=== PATIENT | male | born 1975 | race Caucasian/White ===

== ENCOUNTER 2016-07-18 17:52 | Emergency (ER) | payer MEDICAID, OTHER ==
[~2016-07-18] VITALS: Ht 198.1 cm; Wt 85.0 kg
[~2016-07-18 17:52] MED LIST: AMOX500T PO; ERYT250C8 PO; HYDR1TAB12 PO; OMEP-110 PO
[2016-07-18 18:02] VITALS: BP 143/79
[2016-07-18] MEDS ORDERED: SODIUM CHLORIDE FLUSH 10ML SYR IVF ONE (18:30)
[2016-07-18 18:51] LABS: BLOOD UREA NITROGEN 12 mg/dL (7-18)
[2016-07-18] MEDS ORDERED: METH40TA3 PO (18:53)
[2016-07-18] MEDS ORDERED: QUET300T5 PO (18:53)
[2016-07-18 18:55] LABS: ASPARTATE AMINO TRANSFERASE 31 U/L (15-37)
== END 2016-07-18 19:30 | disposition home or self-care (01) ==
LOC: ED 19:21
DX: K29.50 Unspecified chronic gastritis without bleeding (principal)
CPT/HCPCS: 36415; 80053; 85025; 99284

== ENCOUNTER → 2018-05-15 | Outpatient (CLI) | payer OTHER, MEDICAID ==
[~2018-05-15] MED LIST changes: -HYDR1TAB12 PO; +HYDR1TAB13 PO; +METH40TA3 PO; +QUET300T5 PO
== END | disposition home or self-care (01) ==
LOC: RAD 10:11
PROVIDERS: ATTEND Internal Medicine Endocrinology, Diabetes & Metabolism
DX: E22.0 Acromegaly and pituitary gigantism (principal); F25.0 Schizoaffective disorder, bipolar type
CPT/HCPCS: 70553